=== PATIENT | female | born 1970 | race Caucasian/White ===

== ENCOUNTER 2023-01-20 08:16 | Day surgery (SDC) | payer OTHER ==
[2023-01-20] MEDS ORDERED: Lactated Ringers 1,000 ML IV SCH (09:00)
[2023-01-20] MEDS ORDERED: Midazolam 1 MG/ML 2 ML SDV ONE (09:30)
[2023-01-20] MEDS ORDERED: fentaNYL 100 MCG/2 ML SDV ONE (09:30)
[2023-01-20] MEDS ORDERED: Propofol 200 MG/20 ML SDV ONE (09:30)
== END 2023-01-20 12:29 | disposition home or self-care (01) ==
LOC: JP.SDS 08:16
PROVIDERS: ATTEND Family Medicine
DX: Z12.11 Encounter for screening for malignant neoplasm of colon (principal); D12.8 Benign neoplasm of rectum
CPT/HCPCS: 88305; J2250; J2704; J3010; J7120